=== PATIENT | female | born 1990 | race African-American/Black ===

== ENCOUNTER 2023-09-13 12:19 | Day surgery (SDC) | payer BC ==
[2023-09-13] MEDS ORDERED: hydrALAZINE 20 MG/ML VIAL SLOW IVP PRN (12:42)
[2023-09-13 12:53] VITALS: BMI 22.5
== END 2023-09-13 13:47 | disposition home or self-care (01) ==
LOC: CSHLD/OP 12:19
PROVIDERS: ATTEND Family Medicine
DX: O36.8390 Maternal care for abnormalities of the fetal heart rate or rhythm, unspecified trimester, not applicable or unspecified (principal); O99.13 Other diseases of the blood and blood-forming organs and certain disorders involving the immune mechanism complicating the puerperium; O99.343 Other mental disorders complicating pregnancy, third trimester; O09.33 Supervision of pregnancy with insufficient antenatal care, third trimester; D50.9 Iron deficiency anemia, unspecified; F41.1 Generalized anxiety disorder; Z3A.38 38 weeks gestation of pregnancy; Z79.899 Other long term (current) drug therapy
CPT/HCPCS: 76815; 99282

== ENCOUNTER 2023-09-25 14:04 | Inpatient (IN) | payer BC ==
[2023-09-25] MEDS ORDERED: Oxytocin 30 units/NS 500 ML 500 ML ONE (14:30)
[2023-09-25] MEDS ORDERED: Diphenoxylate HCl/Atropine Tablet PO PRN (14:36)
[2023-09-25] MEDS ORDERED: Promethazine HCl 25 MG/ML VIAL IM PRN (14:36)
[2023-09-25] MEDS ORDERED: Ondansetron PF 4 MG/2 ML Vial IVP PRN ×2 (14:36→16:20)
[2023-09-25] MEDS ORDERED: hydrALAZINE 20 MG/ML VIAL SLOW IVP PRN ×2 (14:36→16:20)
[2023-09-25] MEDS ORDERED: Misoprostol 200 MCG TAB PR PRN (14:36)
[2023-09-25] MEDS ORDERED: Ibuprofen 800 MG TAB PO PRN (14:36)
[2023-09-25] MEDS ORDERED: Methylergonovine 0.2 MG/ML VIAL IM PRN (14:36)
[2023-09-25] MEDS ORDERED: Lidocaine 1% (PF) 30 ML VIAL SC PRN (14:36)
[2023-09-25] MEDS ORDERED: Carboprost 250 MCG/ML AMP IM PRN (14:36)
[2023-09-25] MEDS ORDERED: Lactated Ringer's 1,000 ML IV SCH (14:45)
[2023-09-25] MEDS ORDERED: Oxytocin 30 units/NS 500 ML 500 ML IV SCH (14:45)
[2023-09-25 14:57] LABS: Hematocrit 35.9 % (34.9-44.5); Hemoglobin 12.7 g/dL (12.0-15.5); Mean Corpuscular HGB CONC 35.4 g/dL (32.0-36.0); Mean Corpuscular Hemoglobin 33.4 pg (27.0-33.0); Mean Corpuscular Volume 94.5 fl (81.6-98.3); Mean Platelet Volume 8.7 fl (7.4-10.4); Platelet Count 313 10x3/uL (150-450); RBC Distribution Width 12.4 % (11.5-14.5); White Blood Cell (WBC) Count 5.9 10x3/uL (3.5-10.5)
[2023-09-25 15:51] VITALS: BMI 23.6
[2023-09-25] MEDS ORDERED: Ondansetron ODT 4 MG TAB PO SCH (16:00)
[2023-09-25] MEDS ORDERED: Preparation H Ointment 28 GM TUBE PR PRN (16:20)
[2023-09-25] MEDS ORDERED: Boostrix 0.5 ML (Tdap) VIAL (>/=7 yrs of age) IM ONE (16:20)
[2023-09-25] MEDS ORDERED: Benzocaine-Menthol 82.5 ML CAN TOP PRN (16:20)
[2023-09-25] MEDS ORDERED: diphenhydrAMINE 25 MG CAP PO PRN (16:20)
[2023-09-25] MEDS ORDERED: Bisacodyl 10 MG SUPP PR PRN (16:20)
[2023-09-25] MEDS ORDERED: Lanolin Ointment 7 GM TUBE TOP PRN (16:20)
[2023-09-25] MEDS ORDERED: Milk Of Magnesia 30 ML UDCUP PO PRN (16:20)
[2023-09-25] MEDS: Ferrous Sulfate 325 MG TAB PO SCH (18:12)
[2023-09-25] MEDS: Docusate 100 MG CAP PO SCH (22:30)
[2023-09-25] MEDS: Ibuprofen 800 MG TAB PO SCH (22:30)
[2023-09-26] MEDS: Ibuprofen 800 MG TAB PO SCH ×3 (05:26→21:52)
[2023-09-26] MEDS: Ferrous Sulfate 325 MG TAB PO SCH ×2 (08:22→19:01)
[2023-09-26] MEDS: Prenatal Vitamin 1 TAB PO SCH (08:30)
[2023-09-26] MEDS: Docusate 100 MG CAP PO SCH ×2 (08:31→21:53)
[2023-09-26] MEDS ORDERED: Acetaminophen 500 MG TAB PO PRN (23:41)
[2023-09-27] MEDS: Ibuprofen 800 MG TAB PO SCH ×2 (05:21→13:01)
[2023-09-27] MEDS: Ferrous Sulfate 325 MG TAB PO SCH (07:08)
[2023-09-27 07:41] VITALS: BP 97/52; TEMP 98.5
[2023-09-27] MEDS: Prenatal Vitamin 1 TAB PO SCH (08:41)
[2023-09-27] MEDS: Docusate 100 MG CAP PO SCH (08:41)
== END 2023-09-27 14:35 | disposition home or self-care (01) | DRG 807 ==
LOC: CSHLD/OP 14:04 → CSHLD 16:18 → CSHPP 18:00
PROVIDERS: ADMIT Family Medicine; ATTEND Family Medicine
PROC: 10E0XZZ Delivery of Products of Conception, External Approach (ICD-10-PCS; principal; 2023-09-25)
PROC: 10907ZC Drainage of Amniotic Fluid, Therapeutic from Products of Conception, Via Natural or Artificial Opening (ICD-10-PCS; 2023-09-25)
DX: O48.0 Post-term pregnancy (principal); Z37.0 Single live birth; Z3A.40 40 weeks gestation of pregnancy; O99.02 Anemia complicating childbirth; D64.9 Anemia, unspecified; O99.344 Other mental disorders complicating childbirth; F41.1 Generalized anxiety disorder; O77.0 Labor and delivery complicated by meconium in amniotic fluid
CPT/HCPCS: 85027; 86900; 86901; 99285; J2590